=== PATIENT | male | born 1990 | race Two or more races ===

== ENCOUNTER 2019-03-14 09:39 | Outpatient (CLI) | payer OTHER | END 2019-03-14 15:00 | disposition home or self-care (01) | LOC: LAB 09:39 | DX: J11.89 Influenza due to unidentified influenza virus with other manifestations (principal); J06.9 Acute upper respiratory infection, unspecified ==

== ENCOUNTER 2020-04-02 17:17 | Outpatient (CLI) | payer OTHER | END 2020-04-02 17:18 | disposition home or self-care (01) | LOC: PPH VACUNA 17:17 | DX: Z23 Encounter for immunization (principal) ==

== ENCOUNTER 2020-09-17 10:56 | Outpatient (CLI) | payer OTHER | END 2020-09-17 11:01 | disposition home or self-care (01) | LOC: LAB 10:56 | PROVIDERS: ATTEND General Practice | DX: R42 Dizziness and giddiness (principal); N39.0 Urinary tract infection, site not specified; Z00.00 Encounter for general adult medical examination without abnormal findings; E78.49 Other hyperlipidemia; E55.9 Vitamin D deficiency, unspecified ==

== ENCOUNTER 2021-04-11 08:00 | Outpatient (CLI) | payer OTHER | END 2021-04-11 08:30 | disposition home or self-care (01) | LOC: PPH VACUNA 08:00 | PROVIDERS: ATTEND Emergency Medicine Pediatric Emergency Medicine | DX: Z23 Encounter for immunization (principal) ==

== ENCOUNTER 2022-03-01 08:53 | Outpatient (CLI) | payer OTHER | END 2022-03-01 15:33 | disposition home or self-care (01) | LOC: LAB 08:53 | PROVIDERS: ATTEND Preventive Medicine Occupational Medicine | DX: U07.1 COVID-19 (principal) ==

== ENCOUNTER 2022-04-05 08:00 | Outpatient (CLI) | payer OTHER | END 2022-04-05 08:05 | disposition home or self-care (01) | LOC: PPH VACUNA 08:00 | PROVIDERS: ATTEND Emergency Medicine Pediatric Emergency Medicine | DX: Z23 Encounter for immunization (principal) ==

== ENCOUNTER 2023-04-20 10:38 | Outpatient (CLI) | payer OTHER | END 2023-04-20 10:48 | disposition home or self-care (01) | LOC: PPH VACUNA 10:38 | PROVIDERS: ATTEND Emergency Medicine Pediatric Emergency Medicine | DX: Z23 Encounter for immunization (principal) ==

== ENCOUNTER 2023-06-18 08:10 | Emergency (ER) | payer OTHER ==
[~2023-06-18] VITALS: Ht 188 cm; Wt 128.4 kg
[2023-06-18 09:40] LABS: HEMATOCRIT 41.8 % (39.0-48.0); HEMOGLOBIN 14.3 g/dL (13-16.00); MEAN CELL VOLUME 81.6 fL (80.0-100.00); MEAN CORPUSCULAR HEMOGLOBIN 27.9 pg (27.00-32.0); MEAN CORPUSCULAR HGB CONC 34.2 g/dl (32.0-36.0); PLATELET COUNT 366 K/uL (150-450); RED BLOOD COUNT 5.12 M/uL (4.00-6.00); RED CELL DISTRIBUTION WIDTH 12.5 % (11.5-14.5)
[2023-06-18] MEDS ORDERED: ZITHROMAX500 MG PO (10:00)
[2023-06-18] MEDS ORDERED: ZYRTEC10 M3 PO (10:00)
[2023-06-18] MEDS ORDERED: TUSNEL LIQUID178 ML PO (10:00)
== END 2023-06-18 13:25 | disposition home or self-care (01) ==
LOC: ER 08:11
PROVIDERS: General Practice
DX: B34.9 Viral infection, unspecified (principal)